=== PATIENT | male | born 1955 | race Native Hawaiian/Other Pacific Islander ===

== ENCOUNTER 2016-06-04 06:05 | Outpatient (CLI) | payer OTHER ==
[2016-06-04 08:47] LABS: SODIUM 141 mmol/L (136-145)
== END 2016-06-04 19:21 | disposition home or self-care (01) ==
LOC: LABW 06:05
PROVIDERS: Internal Medicine Cardiovascular Disease
DX: I10 Essential (primary) hypertension (principal); E78.00 Pure hypercholesterolemia, unspecified
CPT/HCPCS: 36415; 80053; 80061; 82550; 84439; 84443

== ENCOUNTER 2016-08-17 06:48 | Outpatient (CLI) | payer OTHER | END 2016-08-17 19:03 | disposition home or self-care (01) | LOC: LABW 06:48 | PROVIDERS: Internal Medicine Cardiovascular Disease | DX: E78.2 Mixed hyperlipidemia (principal); Z79.899 Other long term (current) drug therapy; Z51.81 Encounter for therapeutic drug level monitoring | CPT/HCPCS: 36415; 80061; 80076 ==

== ENCOUNTER 2016-12-11 05:53 | Outpatient (CLI) | payer OTHER | END 2016-12-11 18:54 | disposition home or self-care (01) | LOC: LABW 05:53 | PROVIDERS: Internal Medicine Cardiovascular Disease | DX: E78.00 Pure hypercholesterolemia, unspecified (principal) | CPT/HCPCS: 36415; 80061; 80076; 82550 ==

== ENCOUNTER 2017-08-12 15:55 | Outpatient (CLI) | payer OTHER | END 2017-08-12 22:14 | disposition home or self-care (01) | LOC: RAD 15:55 | DX: M25.512 Pain in left shoulder (principal) ==

== ENCOUNTER 2017-10-16 05:44 | Outpatient (CLI) | payer OTHER | END 2017-10-16 23:52 | disposition home or self-care (01) | LOC: LABW 05:44 | PROVIDERS: Internal Medicine Cardiovascular Disease | DX: E78.2 Mixed hyperlipidemia (principal) | CPT/HCPCS: 36415; 80061; 80076; 82550; 82947; 83036 ==

== ENCOUNTER 2018-08-13 16:10 | Emergency (ER) | payer OTHER ==
[~2018-08-13] VITALS: Ht 170.2 cm; Wt 81.6 kg
[2018-08-13 16:15] VITALS: TEMP 97.7
[2018-08-13 17:35] VITALS: BP 176/89
== END 2018-08-13 17:35 | disposition home or self-care (01) ==
LOC: ED 16:10
DX: S50.01XA Contusion of right elbow, initial encounter (principal); W31.89XA Contact with other specified machinery, initial encounter; Y93.89 Activity, other specified; Y92.89 Other specified places as the place of occurrence of the external cause; Y99.0 Civilian activity done for income or pay
CPT/HCPCS: 80307; 99283

== ENCOUNTER 2018-09-26 06:45 | Outpatient (CLI) | payer OTHER ==
[2018-09-26 06:57] LABS: PLATELET COUNT 161 K/uL (142-355)
[2018-09-26 07:19] LABS: POTASSIUM 4.1 mmol/L (3.6-5.2)
== END 2018-09-26 23:35 | disposition home or self-care (01) ==
LOC: LABW 06:45
PROVIDERS: Internal Medicine Cardiovascular Disease
DX: E78.2 Mixed hyperlipidemia (principal); I25.810 Atherosclerosis of coronary artery bypass graft(s) without angina pectoris; I10 Essential (primary) hypertension
CPT/HCPCS: 36415; 80053; 80061; 82550; 85027

== ENCOUNTER 2019-07-13 22:09 | Emergency (ER) | payer OTHER ==
[~2019-07-13] VITALS: Ht 170.2 cm; Wt 86.2 kg
[2019-07-13 22:09] VITALS: TEMP 98.5
[2019-07-13 22:42] LABS: PLATELET COUNT 183 K/uL (142-355)
[2019-07-13 22:57] LABS: PARTIAL THROMBOPLASTIN TIME 24.3 SECONDS (24.5-33.6)
[2019-07-13 23:02] LABS: POTASSIUM 3.5 mmol/L (3.6-5.2); SODIUM 138 mmol/L (136-145)
[2019-07-14 01:41] VITALS: BP 147/81
== END 2019-07-14 01:41 | disposition short-term general hospital (02) ==
LOC: ED 22:09
PROVIDERS: Family Medicine
PROC: 0T9B70Z Drainage of Bladder with Drainage Device, Via Natural or Artificial Opening (ICD-10-PCS; principal; 2019-07-13)
DX: I49.8 Other specified cardiac arrhythmias (principal); R07.89 Other chest pain
CPT/HCPCS: 51702; 80053; 81000; 82550; 83880; 84484; 85027; 85379; 85610; 85730; 93005; 96374; 96375; 99285; J2270; J2405; J3490

== ENCOUNTER 2020-10-30 14:51 | Emergency (ER) | payer OTHER ==
[~2020-10-30] VITALS: Ht 170.2 cm; Wt 79.4 kg
[2020-10-30 16:06] VITALS: BP 190/101; TEMP 97.7
== END 2020-10-30 16:10 | disposition home or self-care (01) ==
LOC: ED 14:51
DX: L03.211 Cellulitis of face (principal); X58.XXXA Exposure to other specified factors, initial encounter; Y92.89 Other specified places as the place of occurrence of the external cause
CPT/HCPCS: 96372; 99283; J0696; J1200; J2930

== ENCOUNTER 2020-11-03 08:13 | Outpatient (CLI) | payer OTHER | END 2020-11-03 20:09 | disposition home or self-care (01) | LOC: LAB 08:13 | PROVIDERS: ATTEND Internal Medicine Cardiovascular Disease | DX: I25.10 Atherosclerotic heart disease of native coronary artery without angina pectoris (principal); E78.5 Hyperlipidemia, unspecified | CPT/HCPCS: 36415; 80061 ==